=== PATIENT | male | born 1930 | race Caucasian/White ===

== ENCOUNTER 2021-04-15 16:36 | Inpatient (IN) ==
[2021-04-15] MEDS ORDERED: Melatonin 3 MG TABLET PO PRN (22:23)
[2021-04-15] MEDS ORDERED: Naloxone 0.4 MG/ML INJ IVP PRN (22:23)
[2021-04-15 23:16] LABS: Hematocrit 24.8 % (37.5-50.1); Hemoglobin 7.7 g/dL (12.9-16.9); Mean Corpuscular Hemoglobin 23.6 pg (28.0-33.3); Mean Corpuscular Volume 76.1 fL (83.0-100.0); Mean Platelet Volume 9.5 fL (9.4-12.4); Platelet Count 206 K/mcL (140-400); Red Blood Count 3.26 M/mcL (4.19-5.50); Red Cell Distribution Width 17.2 % (11.5-14.5); White Blood Count 7.9 K/mcL (4.3-11.1)
[2021-04-15 23:18] LABS: INR 2.3; Prothrombin Time 25.3 Seconds (9.4-12.1)
[2021-04-15 23:21] LABS: Activated Partial Thrombo Time 39.8 Seconds (26.0-36.0)
[2021-04-15 23:35] LABS: Alanine Aminotransferase 10 Units/L (7-52); Albumin 3.6 g/dL (3.5-5.7); Albumin/Globulin Ratio 1.6 (1.1-2.2); Alkaline Phosphatase 76 Units/L (34-104); Aspartate Amino Transferase 15 Units/L (13-39); BUN/Creatinine Ratio 14 (6-26); Bilirubin,Total 0.7 mg/dL (0.3-1.0); Blood Urea Nitrogen 17 mg/dL (8-23); Calcium 8.7 mg/dL (8.6-10.3); Carbon Dioxide 25 mEq/L (23-29); Chloride 104 mEq/L (98-107); Globulin 2.3 g/dL (2.4-3.5); Glucose 97 mg/dL (70-105); Osmolality,Calculated 283 (280-300); Potassium 4.2 mEq/L (3.5-5.1); Sodium 136 mEq/L (136-145); Total Protein 5.9 g/dL (6.4-8.9); eGFR For African Americans > 60 (> 60); eGFR For Non-African Americans 58 (> 60)
[2021-04-16] MEDS ORDERED: *HR* Heparin 5,000 UNIT/ML VIAL IVP PRN ×2 (11:56)
[2021-04-16] MEDS ORDERED: *HR* Heparin 5,000 UNIT/ML VIAL IVP ONE ×2 (11:56→17:00)
[2021-04-16] MEDS ORDERED: Heparin 25,000UNIT/250ML 1/2NS 25,000 UNIT/250 ML IV.SOLN IVC SCH (12:00)
[2021-04-16] MEDS ORDERED: Ipratropium/Albuterol Neb 3 ML IH PRN (13:43)
[2021-04-16 14:19] LABS: Basophils # 0.1 K/mcL (0.0-0.2); Basophils % 0.9 %; Eosinophils # 0.3 K/mcL (0.0-0.6); Eosinophils % 4.2 %; Hematocrit 25.8 % (37.5-50.1); Hemoglobin 8.1 g/dL (12.9-16.9); Immature Granulocytes % 0.4 % (0-4); Lymphocytes # 0.7 K/mcL (0.6-4.6); Lymphocytes % 8.5 %; Mean Corpuscular HGB Conc 31.4 g/dL (31.6-35.5); Mean Corpuscular Hemoglobin 24.2 pg (28.0-33.3); Mean Platelet Volume 9.3 fL (9.4-12.4); Monocytes # 0.7 K/mcL (0.0-1.3); Monocytes % 8.8 %; Neutrophils # 6.2 K/mcL (1.6-8.9); Platelet Count 207 K/mcL (140-400); Red Blood Count 3.35 M/mcL (4.19-5.50); Red Cell Distribution Width 18.6 % (11.5-14.5); Segmented Neutrophils % 77.2 %
[2021-04-16 14:28] LABS: INR 1.8; Prothrombin Time 20.5 Seconds (9.4-12.1)
[2021-04-16 14:38] LABS: BUN/Creatinine Ratio 14 (6-26); Blood Urea Nitrogen 15 mg/dL (8-23); Calcium 8.9 mg/dL (8.6-10.3); Carbon Dioxide 26 mEq/L (23-29); Chloride 104 mEq/L (98-107); Glucose 104 mg/dL (70-105); Osmolality,Calculated 281 (280-300); Potassium 4.6 mEq/L (3.5-5.1); Sodium 135 mEq/L (136-145); eGFR For African Americans > 60 (> 60); eGFR For Non-African Americans > 60 (> 60)
[2021-04-16 14:39] LABS: Lactate Dehydrogenase 156 Units/L (140-271)
[2021-04-16] MEDS ORDERED: Cefepime HCl 2,000 MG in 0.9 % Sodium Chloride 10 ML IVP SCH (16:00)
[2021-04-16] MEDS ORDERED: *HR* LORazepam 0.5 MG TABLET PO ONE (16:46)
[2021-04-16] MEDS: Ondansetron 4 MG/2 ML VIAL IVP PRN (17:15)
[2021-04-16] MEDS: Heparin 25,000UNIT/250ML 1/2NS 25,000 UNIT/250 ML IV.SOLN IVC SCH (18:05)
[2021-04-17 01:07] LABS: Basophils # 0.1 K/mcL (0.0-0.2); Basophils % 1.1 %; Eosinophils # 0.6 K/mcL (0.0-0.6); Eosinophils % 7.5 %; Hemoglobin 7.5 g/dL (12.9-16.9); Immature Granulocytes % 0.4 % (0-4); Lymphocytes # 0.8 K/mcL (0.6-4.6); Lymphocytes % 9.6 %; Mean Corpuscular HGB Conc 31.3 g/dL (31.6-35.5); Mean Corpuscular Hemoglobin 24.4 pg (28.0-33.3); Mean Corpuscular Volume 78.2 fL (83.0-100.0); Mean Platelet Volume 9.4 fL (9.4-12.4); Monocytes # 0.8 K/mcL (0.0-1.3); Monocytes % 9.8 %; Neutrophils # 5.8 K/mcL (1.6-8.9); Platelet Count 191 K/mcL (140-400); Red Blood Count 3.07 M/mcL (4.19-5.50); Segmented Neutrophils % 71.6 %; White Blood Count 8.2 K/mcL (4.3-11.1)
[2021-04-17 01:23] LABS: BUN/Creatinine Ratio 14 (6-26); Blood Urea Nitrogen 15 mg/dL (8-23); Calcium 8.8 mg/dL (8.6-10.3); Carbon Dioxide 26 mEq/L (23-29); Chloride 107 mEq/L (98-107); Glucose 96 mg/dL (70-105); Osmolality,Calculated 285 (280-300); Potassium 4.6 mEq/L (3.5-5.1); Sodium 137 mEq/L (136-145); eGFR For African Americans > 60 (> 60); eGFR For Non-African Americans > 60 (> 60)
[2021-04-17] MEDS ORDERED: Furosemide 40 MG TABLET PO PRN (12:49)
[2021-04-17] MEDS ORDERED: Acetaminophen 325 MG TABLET PO PRN ×2 (13:57→14:30)
[2021-04-17] MEDS: Heparin 25,000UNIT/250ML 1/2NS 25,000 UNIT/250 ML IV.SOLN IVC SCH (17:08)
[2021-04-17] MEDS: Budesonide/Formoterol 160/4.5 1 PUFF INH IH SCH (19:48)
[2021-04-17] MEDS: hydrOXYzine pamoate 25 MG CAPSULE PO SCH (20:46)
[2021-04-17] MEDS: QUEtiapine Fumarate 25 MG TABLET PO SCH (20:46)
[2021-04-17] MEDS: Lactobacillus 1 EACH CAP.SPRINK PO SCH (20:46)
[2021-04-17] MEDS: Azelastine 0.1% Nasal Spray 30 ML BOTTLE NS SCH (20:58)
[2021-04-18 06:02] LABS: Basophils # 0.1 K/mcL (0.0-0.2); Basophils % 1.1 %; Eosinophils # 0.7 K/mcL (0.0-0.6); Eosinophils % 8.8 %; Hematocrit 24.6 % (37.5-50.1); Hemoglobin 7.6 g/dL (12.9-16.9); Immature Granulocytes % 0.4 % (0-4); Lymphocytes % 12.4 %; Mean Corpuscular HGB Conc 30.9 g/dL (31.6-35.5); Mean Corpuscular Hemoglobin 24.4 pg (28.0-33.3); Mean Corpuscular Volume 78.8 fL (83.0-100.0); Mean Platelet Volume 9.7 fL (9.4-12.4); Monocytes # 0.8 K/mcL (0.0-1.3); Monocytes % 9.4 %; Neutrophils # 5.5 K/mcL (1.6-8.9); Platelet Count 203 K/mcL (140-400); Red Blood Count 3.12 M/mcL (4.19-5.50); Red Cell Distribution Width 19.7 % (11.5-14.5); Segmented Neutrophils % 67.9 %; White Blood Count 8.1 K/mcL (4.3-11.1)
[2021-04-18 06:19] LABS: BUN/Creatinine Ratio 14 (6-26); Blood Urea Nitrogen 16 mg/dL (8-23); Calcium 8.4 mg/dL (8.6-10.3); Carbon Dioxide 25 mEq/L (23-29); Chloride 106 mEq/L (98-107); Glucose 83 mg/dL (70-105); Osmolality,Calculated 284 (280-300); Potassium 4.2 mEq/L (3.5-5.1); Sodium 137 mEq/L (136-145); eGFR For African Americans > 60 (> 60); eGFR For Non-African Americans > 60 (> 60)
[2021-04-18] MEDS: Lactobacillus 1 EACH CAP.SPRINK PO SCH ×2 (07:38→20:05)
[2021-04-18] MEDS: Azelastine 0.1% Nasal Spray 30 ML BOTTLE NS SCH ×2 (07:45→20:06)
[2021-04-18] MEDS ORDERED: Tiotropium 10 INH DOSE IH ONE (07:46)
[2021-04-18] MEDS: Budesonide/Formoterol 160/4.5 1 PUFF INH IH SCH ×2 (07:48→20:09)
[2021-04-18] MEDS: Tiotropium 10 INH DOSE IH SCH (07:48)
[2021-04-18] MEDS ORDERED: E-Z-PAQUE (BARIUM SULF) SUSP 1 BOTTLE PO ONE (13:38)
[2021-04-18] MEDS ORDERED: E-Z-HD (BARIUM SULF) SUSPENSION PO ONE (13:38)
[2021-04-18 15:21] LABS: RBC,Pleural Fluid 2000 RBC/mcL
[2021-04-18 15:30] LABS: Glucose,Pleural Fluid 109 mg/dL (No Ref Range); LDH,Pleural Fluid 55 Units/L (No Ref Range); Total Protein,Pleural Fluid < 2.0 g/dL
[2021-04-18 16:35] LABS: Appearance of Pleural Fl Hazy (Clear)
[2021-04-18 16:37] LABS: Basophils,Pleural Fluid 0 %; Eosinophils,Pleural Fluid 0 %; Monocytes,Pleural Fluid 0 %
[2021-04-18] MEDS: Heparin 25,000UNIT/250ML 1/2NS 25,000 UNIT/250 ML IV.SOLN IVC SCH (17:11)
[2021-04-18] MEDS: hydrOXYzine pamoate 25 MG CAPSULE PO SCH (20:06)
[2021-04-18] MEDS: QUEtiapine Fumarate 25 MG TABLET PO SCH (20:06)
[2021-04-19] MEDS: Heparin 25,000UNIT/250ML 1/2NS 25,000 UNIT/250 ML IV.SOLN IVC SCH (01:29)
[2021-04-19 06:09] LABS: Basophils # 0.1 K/mcL (0.0-0.2); Eosinophils # 0.7 K/mcL (0.0-0.6); Eosinophils % 8.3 %; Hematocrit 26.2 % (37.5-50.1); Immature Granulocytes % 0.3 % (0-4); Lymphocytes # 1.2 K/mcL (0.6-4.6); Lymphocytes % 14.1 %; Mean Corpuscular HGB Conc 30.5 g/dL (31.6-35.5); Mean Corpuscular Hemoglobin 24.1 pg (28.0-33.3); Mean Corpuscular Volume 78.9 fL (83.0-100.0); Mean Platelet Volume 9.3 fL (9.4-12.4); Monocytes # 0.7 K/mcL (0.0-1.3); Monocytes % 8.3 %; Neutrophils # 5.9 K/mcL (1.6-8.9); Platelet Count 190 K/mcL (140-400); Red Blood Count 3.32 M/mcL (4.19-5.50); Red Cell Distribution Width 20.5 % (11.5-14.5); White Blood Count 8.6 K/mcL (4.3-11.1)
[2021-04-19 06:28] LABS: BUN/Creatinine Ratio 15 (6-26); Blood Urea Nitrogen 19 mg/dL (8-23); Calcium 8.4 mg/dL (8.6-10.3); Carbon Dioxide 25 mEq/L (23-29); Chloride 107 mEq/L (98-107); Glucose 93 mg/dL (70-105); Osmolality,Calculated 286 (280-300); Potassium 4.3 mEq/L (3.5-5.1); Sodium 137 mEq/L (136-145); eGFR For African Americans > 60 (> 60); eGFR For Non-African Americans 55 (> 60)
[2021-04-19] MEDS: Budesonide/Formoterol 160/4.5 1 PUFF INH IH SCH ×2 (07:56→20:29)
[2021-04-19] MEDS: Tiotropium 10 INH DOSE IH SCH (07:57)
[2021-04-19] MEDS: Lactobacillus 1 EACH CAP.SPRINK PO SCH ×2 (08:25→20:57)
[2021-04-19] MEDS: Azelastine 0.1% Nasal Spray 30 ML BOTTLE NS SCH ×2 (08:26→20:57)
[2021-04-19] MEDS: Ondansetron 4 MG/2 ML VIAL IVP PRN (16:25)
[2021-04-19] MEDS: hydrOXYzine pamoate 25 MG CAPSULE PO SCH (20:56)
[2021-04-19] MEDS: QUEtiapine Fumarate 25 MG TABLET PO SCH (20:57)
[2021-04-20 05:42] LABS: Basophils # 0.1 K/mcL (0.0-0.2); Basophils % 0.6 %; Eosinophils # 0.5 K/mcL (0.0-0.6); Eosinophils % 5.3 %; Immature Granulocytes % 0.6 % (0-4); Lymphocytes # 0.8 K/mcL (0.6-4.6); Lymphocytes % 8.2 %; Mean Corpuscular HGB Conc 29.6 g/dL (31.6-35.5); Mean Corpuscular Hemoglobin 23.3 pg (28.0-33.3); Mean Corpuscular Volume 78.5 fL (83.0-100.0); Mean Platelet Volume 9.6 fL (9.4-12.4); Monocytes # 0.7 K/mcL (0.0-1.3); Monocytes % 7.3 %; Neutrophils # 7.5 K/mcL (1.6-8.9); Platelet Count 200 K/mcL (140-400); Red Blood Count 3.44 M/mcL (4.19-5.50); Red Cell Distribution Width 20.3 % (11.5-14.5); White Blood Count 9.6 K/mcL (4.3-11.1)
[2021-04-20 06:13] LABS: BUN/Creatinine Ratio 19 (6-26); Blood Urea Nitrogen 22 mg/dL (8-23); Calcium 8.7 mg/dL (8.6-10.3); Carbon Dioxide 25 mEq/L (23-29); Chloride 107 mEq/L (98-107); Glucose 100 mg/dL (70-105); Osmolality,Calculated 289 (280-300); Potassium 4.9 mEq/L (3.5-5.1); Sodium 138 mEq/L (136-145); eGFR For African Americans > 60 (> 60); eGFR For Non-African Americans 59 (> 60)
[2021-04-20] MEDS: Lactobacillus 1 EACH CAP.SPRINK PO SCH ×2 (07:48→20:00)
[2021-04-20] MEDS: Budesonide/Formoterol 160/4.5 1 PUFF INH IH SCH ×2 (08:01→20:41)
[2021-04-20] MEDS: Tiotropium 10 INH DOSE IH SCH (08:02)
[2021-04-20] MEDS: Heparin 25,000UNIT/250ML 1/2NS 25,000 UNIT/250 ML IV.SOLN IVC SCH (09:21)
[2021-04-20] MEDS: Azelastine 0.1% Nasal Spray 30 ML BOTTLE NS SCH ×2 (09:23→20:02)
[2021-04-20] MEDS ORDERED: Milk and Molasses Enema 200 ML RC ONE (10:00)
[2021-04-20] MEDS: Apixaban 5 MG TABLET PO SCH ×2 (13:01→20:01)
[2021-04-20] MEDS ORDERED: Albuterol 2.5 MG/3 ML NEBULIZER IH PRN (15:35)
[2021-04-20] MEDS ORDERED: Albuterol 2.5 MG/3 ML NEBULIZER ONE (15:35)
[2021-04-20] MEDS ORDERED: *HR* Propofol 200 MG/20 ML VIAL IVP ONE (16:38)
[2021-04-20] MEDS ORDERED: *HR* Rocuronium Bromide 50 MG/5 ML VIAL ONE (16:39)
[2021-04-20] MEDS ORDERED: Lidocaine -MPF 2% 5 ML VIAL ONE (16:39)
[2021-04-20] MEDS ORDERED: Ondansetron 4 MG/2 ML VIAL ONE (17:00)
[2021-04-20] MEDS: hydrOXYzine pamoate 25 MG CAPSULE PO SCH (20:00)
[2021-04-20] MEDS: QUEtiapine Fumarate 25 MG TABLET PO SCH (20:01)
[2021-04-21 06:07] LABS: Hematocrit 25.5 % (37.5-50.1); Hemoglobin 7.9 g/dL (12.9-16.9); Mean Corpuscular Volume 77.5 fL (83.0-100.0); Platelet Count 200 K/mcL (140-400); Red Blood Count 3.29 M/mcL (4.19-5.50); Red Cell Distribution Width 20.6 % (11.5-14.5); White Blood Count 6.3 K/mcL (4.3-11.1)
[2021-04-21] MEDS: Lactobacillus 1 EACH CAP.SPRINK PO SCH ×2 (08:06→21:33)
[2021-04-21] MEDS: Apixaban 5 MG TABLET PO SCH ×2 (08:07→21:33)
[2021-04-21] MEDS: Budesonide/Formoterol 160/4.5 1 PUFF INH IH SCH ×2 (08:21→20:08)
[2021-04-21] MEDS: Tiotropium 10 INH DOSE IH SCH (08:21)
[2021-04-21] MEDS: Azelastine 0.1% Nasal Spray 30 ML BOTTLE NS SCH ×2 (08:47→21:33)
[2021-04-21] MEDS: Ondansetron 4 MG/2 ML VIAL IVP PRN (15:42)
[2021-04-21 20:31] LABS: Fluid Source for Cholesterol PLEURAL FLUID
[2021-04-21] MEDS: hydrOXYzine pamoate 25 MG CAPSULE PO SCH (21:33)
[2021-04-21] MEDS: QUEtiapine Fumarate 25 MG TABLET PO SCH (21:33)
[2021-04-22] MEDS: Tiotropium 10 INH DOSE IH SCH (08:11)
[2021-04-22] MEDS: Budesonide/Formoterol 160/4.5 1 PUFF INH IH SCH (08:12)
[2021-04-22] MEDS: Lactobacillus 1 EACH CAP.SPRINK PO SCH (08:20)
[2021-04-22] MEDS: Apixaban 5 MG TABLET PO SCH (08:20)
[2021-04-22] MEDS: Azelastine 0.1% Nasal Spray 30 ML BOTTLE NS SCH (08:20)
[2021-04-22 10:18] LABS: Cholesterol,Body Fluid 15 mg/dL
[2021-04-22 14:18] VITALS: BP 113/63; PULSE 88; TEMP 97.6; O2SAT 92
[2021-04-22 14:31] LABS: Adenovirus Not Detected (Not Detect); Bordetella Pertussis Not Detected (Not Detect); Chlamydophila pneumoniae Not Detected (Not Detect); Coronavirus 229E Not Detected (Not Detect); Coronavirus HKU1 Not Detected (Not Detect); Coronavirus NL63 Not Detected (Not Detect); Coronavirus OC43 Not Detected (Not Detect); Human Metapneumovirus Not Detected (Not Detect); Human Rhinovirus/Enterovirus Not Detected (Not Detect); Influenza A Subtype 2009 H1 Not Detected (Not Detect); Influenza B Not Detected (Not Detect); Mycoplasma pneumoniae Not Detected (Not Detect); Parainfluenza Virus 1 Not Detected (Not Detect); Parainfluenza Virus 2 Not Detected (Not Detect); Parainfluenza Virus 3 Not Detected (Not Detect); Parainfluenza Virus 4 Not Detected (Not Detect); Respiratory Syncytial Virus Not Detected (Not Detect); SARS-CoV-2 Not Detected (Not Detect)
== END 2021-04-22 17:55 | disposition other institution (70) | DRG 392 ==
LOC: 3ANU → SUATTDRO 21:52
PROVIDERS: ADMIT Internal Medicine; ATTEND Internal Medicine

== ENCOUNTER 2021-06-14 15:27 | Inpatient (IN) ==
[2021-06-14] MEDS ORDERED: Melatonin 3 MG TABLET PO PRN (19:55)
[2021-06-14] MEDS ORDERED: Ondansetron 4 MG/2 ML VIAL IVP PRN (19:55)
[2021-06-14] MEDS ORDERED: Acetaminophen 325 MG TABLET PO PRN (19:55)
[2021-06-14] MEDS ORDERED: Naloxone 0.4 MG/ML INJ IVP PRN (19:55)
[2021-06-14 20:28] LABS: Basophils # 0.1 K/mcL (0.0-0.2); Basophils % 0.7 %; Eosinophils # 0.3 K/mcL (0.0-0.6); Eosinophils % 2.5 %; Hematocrit 25.7 % (37.5-50.1); Hemoglobin 7.7 g/dL (12.9-16.9); Immature Granulocytes % 0.4 % (0-4); Lymphocytes # 1.1 K/mcL (0.6-4.6); Lymphocytes % 11.1 %; Mean Corpuscular Hemoglobin 23.7 pg (28.0-33.3); Mean Corpuscular Volume 79.1 fL (83.0-100.0); Monocytes # 0.9 K/mcL (0.0-1.3); Monocytes % 8.8 %; Neutrophils # 7.6 K/mcL (1.6-8.9); Platelet Count 249 K/mcL (140-400); Red Blood Count 3.25 M/mcL (4.19-5.50); Red Cell Distribution Width 23.9 % (11.5-14.5); Segmented Neutrophils % 76.5 %; White Blood Count 9.9 K/mcL (4.3-11.1)
[2021-06-14 20:43] LABS: Anisocytosis 2+ (Not Present); Microcytosis Present (Not Present); Platelet Estimate Normal (Normal)
[2021-06-15] MEDS ORDERED: Chloraseptic Spray 177 ML BOTTLE MM PRN (01:37)
[2021-06-15 04:53] LABS: Basophils # 0.1 K/mcL (0.0-0.2); Basophils % 0.8 %; Eosinophils # 0.2 K/mcL (0.0-0.6); Eosinophils % 2.5 %; Hematocrit 24.5 % (37.5-50.1); Hemoglobin 7.2 g/dL (12.9-16.9); Immature Granulocytes % 0.5 % (0-4); Lymphocytes # 0.8 K/mcL (0.6-4.6); Mean Corpuscular HGB Conc 29.4 g/dL (31.6-35.5); Mean Corpuscular Hemoglobin 23.2 pg (28.0-33.3); Mean Corpuscular Volume 78.8 fL (83.0-100.0); Mean Platelet Volume 9.5 fL (9.4-12.4); Monocytes # 0.7 K/mcL (0.0-1.3); Monocytes % 8.2 %; Platelet Count 258 K/mcL (140-400); Red Blood Count 3.11 M/mcL (4.19-5.50); Red Cell Distribution Width 23.9 % (11.5-14.5); White Blood Count 8.8 K/mcL (4.3-11.1)
[2021-06-15 05:11] LABS: % Iron Saturation 6 % (20-55); Alanine Aminotransferase 13 Units/L (7-52); Albumin 3.3 g/dL (3.5-5.7); Albumin/Globulin Ratio 1.3 (1.1-2.2); Alkaline Phosphatase 96 Units/L (34-104); Aspartate Amino Transferase 17 Units/L (13-39); BUN/Creatinine Ratio 18 (6-26); Bilirubin,Total 0.9 mg/dL (0.3-1.0); Blood Urea Nitrogen 23 mg/dL (8-23); Calcium 8.4 mg/dL (8.6-10.3); Carbon Dioxide 32 mEq/L (23-29); Chloride 102 mEq/L (98-107); Globulin 2.5 g/dL (2.4-3.5); Glucose 97 mg/dL (70-105); Iron 23 mcg/dL (65-175); Magnesium 2.1 mg/dL (1.6-2.6); Osmolality,Calculated 292 (280-300); Sodium 139 mEq/L (136-145); Total Protein 5.8 g/dL (6.4-8.9); Transferrin 254 mg/dL (203-362); eGFR For African Americans > 60 (> 60); eGFR For Non-African Americans 54 (> 60)
[2021-06-15 05:29] LABS: Ferritin 203 ng/mL (20-250); Poikilocytosis 1+ (Not Present); Target Cells 1+ (Not Present)
[2021-06-15 05:30] LABS: Anisocytosis 2+ (Not Present); Microcytosis Present (Not Present); Platelet Estimate Normal (Normal)
[2021-06-15] MEDS ORDERED: Isovue-370 500 ML BOTTLE IVP ONE (08:34)
[2021-06-15 08:35] LABS: INR 1.8; Prothrombin Time 19.6 Seconds (9.4-12.1)
[2021-06-15] MEDS ORDERED: Furosemide 40 MG TABLET PO PRN (09:28)
[2021-06-15] MEDS ORDERED: polyethylene glycoL 3350 17 GM POWD.PACK PO PRN (09:28)
[2021-06-15] MEDS: Tiotropium 10 INH DOSE IH SCH (11:49)
[2021-06-15] MEDS: Budesonide/Formoterol 160/4.5 1 PUFF INH IH SCH ×2 (11:49→22:13)
[2021-06-15] MEDS ORDERED: Iron Sucrose Complex 400 MG in 0.9 % Sodium Chloride 250 ML IVPB ONE (13:40)
[2021-06-15] MEDS: QUEtiapine Fumarate 25 MG TABLET PO SCH (20:45)
[2021-06-15] MEDS: Lactobacillus 1 EACH CAP.SPRINK PO SCH (20:46)
[2021-06-15] MEDS: hydrOXYzine pamoate 25 MG CAPSULE PO SCH (20:46)
[2021-06-15 22:40] LABS: Basophils # 0.1 K/mcL (0.0-0.2); Basophils % 0.6 %; Eosinophils # 0.2 K/mcL (0.0-0.6); Eosinophils % 1.6 %; Hematocrit 23.9 % (37.5-50.1); Hemoglobin 7.2 g/dL (12.9-16.9); Immature Granulocytes % 0.5 % (0-4); Lymphocytes # 0.6 K/mcL (0.6-4.6); Lymphocytes % 6.4 %; Mean Corpuscular HGB Conc 30.1 g/dL (31.6-35.5); Mean Corpuscular Hemoglobin 23.8 pg (28.0-33.3); Mean Corpuscular Volume 78.9 fL (83.0-100.0); Mean Platelet Volume 8.5 fL (9.4-12.4); Monocytes # 0.9 K/mcL (0.0-1.3); Monocytes % 9.6 %; Neutrophils # 7.7 K/mcL (1.6-8.9); Platelet Count 227 K/mcL (140-400); Red Blood Count 3.03 M/mcL (4.19-5.50); Segmented Neutrophils % 81.3 %; White Blood Count 9.5 K/mcL (4.3-11.1)
[2021-06-15 23:00] LABS: Alanine Aminotransferase 11 Units/L (7-52); Albumin 3.3 g/dL (3.5-5.7); Albumin/Globulin Ratio 1.7 (1.1-2.2); Alkaline Phosphatase 93 Units/L (34-104); Aspartate Amino Transferase 15 Units/L (13-39); BUN/Creatinine Ratio 19 (6-26); Bilirubin,Total 0.9 mg/dL (0.3-1.0); Blood Urea Nitrogen 23 mg/dL (8-23); Calcium 8.6 mg/dL (8.6-10.3); Carbon Dioxide 27 mEq/L (23-29); Chloride 102 mEq/L (98-107); Glucose 123 mg/dL (70-105); Osmolality,Calculated 289 (280-300); Potassium 4.1 mEq/L (3.5-5.1); Sodium 137 mEq/L (136-145); Total Protein 5.3 g/dL (6.4-8.9); eGFR For African Americans > 60 (> 60); eGFR For Non-African Americans 56 (> 60)
[2021-06-15 23:13] LABS: Anisocytosis 1+ (Not Present)
[2021-06-15 23:14] LABS: Microcytosis Present (Not Present); Ovalocytes 1+ (Not Present); Platelet Estimate Normal (Normal); Polychromasia 1+ (Not Present)
[2021-06-16] MEDS: Budesonide/Formoterol 160/4.5 1 PUFF INH IH SCH ×2 (07:27→20:13)
[2021-06-16] MEDS: Tiotropium 10 INH DOSE IH SCH (07:28)
[2021-06-16] MEDS: Sennosides/Docusate Sodium TABLET PO SCH (09:07)
[2021-06-16] MEDS: Lactobacillus 1 EACH CAP.SPRINK PO SCH ×2 (09:08→22:56)
[2021-06-16] MEDS: hydrOXYzine pamoate 25 MG CAPSULE PO SCH (22:56)
[2021-06-16] MEDS: QUEtiapine Fumarate 25 MG TABLET PO SCH (22:58)
[2021-06-17 05:19] LABS: Basophils # 0.1 K/mcL (0.0-0.2); Basophils % 0.6 %; Eosinophils # 0.4 K/mcL (0.0-0.6); Eosinophils % 3.8 %; Hematocrit 22.7 % (37.5-50.1); Hemoglobin 6.7 g/dL (12.9-16.9); Immature Granulocytes % 0.7 % (0-4); Lymphocytes % 10.8 %; Mean Corpuscular HGB Conc 29.5 g/dL (31.6-35.5); Mean Corpuscular Hemoglobin 23.7 pg (28.0-33.3); Mean Corpuscular Volume 80.2 fL (83.0-100.0); Mean Platelet Volume 9.1 fL (9.4-12.4); Monocytes # 0.9 K/mcL (0.0-1.3); Monocytes % 9.5 %; Nucleated Red Blood Cells 0.2 /100 WBC (0); Platelet Count 266 K/mcL (140-400); Red Blood Count 2.83 M/mcL (4.19-5.50); Red Cell Distribution Width 24.5 % (11.5-14.5); Segmented Neutrophils % 74.6 %; White Blood Count 9.5 K/mcL (4.3-11.1)
[2021-06-17 05:22] LABS: Neutrophils # 7.1 K/mcL (1.6-8.9)
[2021-06-17 06:25] LABS: Anisocytosis 2+ (Not Present); Large Platelets Present (Not Present); Macrocytosis Present (Not Present); Microcytosis Present (Not Present); Platelet Estimate Normal (Normal)
[2021-06-17] MEDS ORDERED: 0.9 % Sodium Chloride 250 ML ONE (09:19)
[2021-06-17] MEDS: Lactobacillus 1 EACH CAP.SPRINK PO SCH ×2 (09:27→21:31)
[2021-06-17] MEDS: Sennosides/Docusate Sodium TABLET PO SCH (09:27)
[2021-06-17] MEDS: Budesonide/Formoterol 160/4.5 1 PUFF INH IH SCH ×2 (09:56→20:04)
[2021-06-17] MEDS: Tiotropium 10 INH DOSE IH SCH (09:57)
[2021-06-17] MEDS: QUEtiapine Fumarate 25 MG TABLET PO SCH (21:31)
[2021-06-17] MEDS: hydrOXYzine pamoate 25 MG CAPSULE PO SCH (21:32)
[2021-06-18 04:27] LABS: Hematocrit 25.3 % (37.5-50.1); Hemoglobin 7.9 g/dL (12.9-16.9); Mean Corpuscular HGB Conc 31.2 g/dL (31.6-35.5); Mean Corpuscular Hemoglobin 25.3 pg (28.0-33.3); Mean Corpuscular Volume 81.1 fL (83.0-100.0); Mean Platelet Volume 8.9 fL (9.4-12.4); Platelet Count 266 K/mcL (140-400); Red Blood Count 3.12 M/mcL (4.19-5.50); Red Cell Distribution Width 24.1 % (11.5-14.5); White Blood Count 10.7 K/mcL (4.3-11.1)
[2021-06-18 05:08] LABS: BUN/Creatinine Ratio 21 (6-26); Blood Urea Nitrogen 23 mg/dL (8-23); Calcium 8.2 mg/dL (8.6-10.3); Carbon Dioxide 29 mEq/L (23-29); Chloride 106 mEq/L (98-107); Glucose 91 mg/dL (70-105); Osmolality,Calculated 291 (280-300); Potassium 4.2 mEq/L (3.5-5.1); Sodium 139 mEq/L (136-145); eGFR For African Americans > 60 (> 60); eGFR For Non-African Americans > 60 (> 60)
[2021-06-18] MEDS: Tiotropium 10 INH DOSE IH SCH (07:37)
[2021-06-18] MEDS: Budesonide/Formoterol 160/4.5 1 PUFF INH IH SCH ×2 (07:37→20:06)
[2021-06-18] MEDS: Sennosides/Docusate Sodium TABLET PO SCH ×2 (08:56→22:39)
[2021-06-18] MEDS: Lactobacillus 1 EACH CAP.SPRINK PO SCH ×2 (08:56→21:29)
[2021-06-18] MEDS: hydrOXYzine pamoate 25 MG CAPSULE PO SCH (21:29)
[2021-06-18] MEDS: QUEtiapine Fumarate 25 MG TABLET PO SCH (21:29)
[2021-06-19 02:47] LABS: Hematocrit 30.3 % (37.5-50.1); Hemoglobin 9.2 g/dL (12.9-16.9); Mean Corpuscular HGB Conc 30.4 g/dL (31.6-35.5); Mean Corpuscular Hemoglobin 25.5 pg (28.0-33.3); Mean Corpuscular Volume 83.9 fL (83.0-100.0); Mean Platelet Volume 9.3 fL (9.4-12.4); Platelet Count 291 K/mcL (140-400); Red Blood Count 3.61 M/mcL (4.19-5.50); Red Cell Distribution Width 23.9 % (11.5-14.5); White Blood Count 9.7 K/mcL (4.3-11.1)
[2021-06-19] MEDS: Sennosides/Docusate Sodium TABLET PO SCH ×5 (09:48→20:58)
[2021-06-19] MEDS: Lactobacillus 1 EACH CAP.SPRINK PO SCH ×2 (09:49→20:57)
[2021-06-19] MEDS: Tiotropium 10 INH DOSE IH SCH (10:20)
[2021-06-19] MEDS: Budesonide/Formoterol 160/4.5 1 PUFF INH IH SCH ×2 (10:20→20:30)
[2021-06-19] MEDS: hydrOXYzine pamoate 25 MG CAPSULE PO SCH (20:57)
[2021-06-19] MEDS: QUEtiapine Fumarate 25 MG TABLET PO SCH (20:58)
[2021-06-20] MEDS: Tiotropium 10 INH DOSE IH SCH (07:51)
[2021-06-20] MEDS: Budesonide/Formoterol 160/4.5 1 PUFF INH IH SCH (07:51)
[2021-06-20] MEDS: Lactobacillus 1 EACH CAP.SPRINK PO SCH (08:40)
[2021-06-20] MEDS: Sennosides/Docusate Sodium TABLET PO SCH (08:40)
[2021-06-20 11:37] VITALS: BP 117/72; PULSE 64; TEMP 98.2; O2SAT 99
[2021-06-20 13:47] LABS: Adenovirus Not Detected (Not Detect); Bordetella Pertussis Not Detected (Not Detect); Chlamydophila pneumoniae Not Detected (Not Detect); Coronavirus 229E Not Detected (Not Detect); Coronavirus HKU1 Not Detected (Not Detect); Coronavirus NL63 Not Detected (Not Detect); Coronavirus OC43 DETECTED (Not Detect); Human Metapneumovirus Not Detected (Not Detect); Human Rhinovirus/Enterovirus Not Detected (Not Detect); Influenza A Subtype 2009 H1 Not Detected (Not Detect); Influenza B Not Detected (Not Detect); Mycoplasma pneumoniae Not Detected (Not Detect); Parainfluenza Virus 1 Not Detected (Not Detect); Parainfluenza Virus 2 Not Detected (Not Detect); Parainfluenza Virus 3 Not Detected (Not Detect); Parainfluenza Virus 4 Not Detected (Not Detect); Respiratory Syncytial Virus Not Detected (Not Detect); SARS-CoV-2 Not Detected (Not Detect)
[2021-06-20] MEDS ORDERED: Moderna Covid-19 Vaccine 100MCG/0.5mL IM ONE (14:00)
== END 2021-06-20 15:48 | DRG 394 ==
LOC: 3ANU → SUATTDRO 06-15 13:26
PROVIDERS: ADMIT Internal Medicine; ATTEND Internal Medicine